=== PATIENT | female | born 1980 | race Caucasian/White ===

== ENCOUNTER 2017-02-26 11:10 | Day surgery (SDC) | payer OTHER ==
[~2017-02-26] VITALS: Ht 162.6 cm; Wt 68.2 kg
[~2017-02-26 11:10] MED LIST: BACTRIM; IMU50 PO; LEVE100018 PO; PANT40TA3 PO; PRED2.5T3 PO; ZOLP10TA PO
[2017-02-26 11:50] VITALS: Ht 162.6 cm; Wt 68.2 kg
[2017-02-26 11:54] VITALS: BP 106/66; PULSE 80; RESP 16
[2017-02-26] MEDS ORDERED: CLON0.2T5 PO (11:56)
[2017-02-26] MEDS ORDERED: MELO-110 PO (11:57)
[2017-02-26] MEDS ORDERED: MELO-109 PO (11:57)
[2017-02-26] MEDS ORDERED: LACTATED RINGER'S 1,000 ML IV* SCH (12:30)
[2017-02-26] MEDS ORDERED: CEFAZOLIN 2 GM/50 ML (PMX) 50 ML IVPB SCH (12:30)
--- NOTE | 2017-02-26 14:12 | HPN ---
Date/Time of Note Date/Time of Note DATE: 02/26/17 TIME: 14:11 Interval H&P Admission Note Pt. seen H&P reviewed: No system changes ILIA STERN MD Feb 26, 2017 14:12
--- NOTE | 2017-02-26 14:23 | OPR ---
Date/Time of Note Date/Time of Note DATE: 02/26/17 TIME: 14:19 Operative Report Free Text/Dictation Plastic Surgery Operative Report Preoperative diagnosis: hidradenitis Postoperative diagnosis: same Procedure: excision of bilateral inguinal hidradenitis Surgeon: nikia Lomax.:n/a Anesthesia: gen EBL: 20cc IV fluids: per flow sheet Findings: n/a Complications: none Dispo: home Indications for procedure: 36-year-old female presents today with bilateral inguinal hidradenitis. In the preop area, we marked the planned areas of excision. The procedure will be performed in the lithotomy to allow us to go as far posteriorly as possible. The risks, benefits, alternatives of performing this procedure were discussed with the patient including risks of bleeding, infection, delayed wound healing, lesion recurrence, and patient states that she understands these risks and would like to proceed with the procedure. All questions were answered, no guarantees were given with regards to the outcome of this procedure. Description of procedure: The patient was brought to the operating room where general anesthesia was induced and she was prepped and draped in usual sterile fashion in the lithotomy position taking special care to pad all pressure points and bony prominences. The electrocautery was then used on the right groin to excise the marked area at the level of the subcutaneous fat tissue. There are multiple draining tracts. These were all unroofed and excised. Hemostasis was achieved with electrocautery. Attention was turned to the left groin where the same procedure was carried out. Electrocautery was used to excise the marked areas at the level of the subcutaneous fat tissue. There were again multiple draining tracts and granulation tissue formation. A large cavity was discovered and unroofed posteriorly. There was a penunculated polyp found in the deep cavity, which was sent to pathology. Dissection proceeded inferiorly and additional areas were excised until all areas have been removed. The skin was palpated, and there were no visible or palpable fluctuant masses. Hemostasis was achieved with electrocautery, and then 40 cc of a diluted Exparel solution were injected in and around the surgical sites. Additional round of hemostasis was carried out. Finally, the wound was dressed with Silvadene and gauze. The patient tolerated procedure well, there were no complications, follow-up information and wound care instructions were given ILIA STERN MD Feb 26, 2017 14:23
[2017-02-26] MEDS ORDERED: morphine 2 MG INJ IV PRN (14:30)
[2017-02-26] MEDS ORDERED: EXPAREL NOTE (BUPIVICAINE LIPOSOMAL) XX SCH (14:30)
[2017-02-26] MEDS ORDERED: BUPIVACAINE LIPOSOME/PF 266 MG/20 ML VIAL INFIL SCH (14:30)
[2017-02-26] MEDS ORDERED: OXYCODONE/ACETAMINOPHEN (5/325) TAB PO PRN ×3 (14:30→16:00)
[2017-02-26] MEDS ORDERED: MIDAZOLAM 1 MG/ML 2 ML INJ ONE ×3 (14:31→14:48)
[2017-02-26] MEDS ORDERED: LIDOCAINE 2%/EPI 30 ML INJ ONE (14:34)
[2017-02-26] MEDS ORDERED: LIDOCAINE 2% (SDV) 5 ML INJ ONE (14:41)
[2017-02-26] MEDS ORDERED: PROPOFOL 20 ML ONE ×2 (14:41→15:12)
[2017-02-26] MEDS ORDERED: FENTAnyl 50 MCG/ML VIAL ONE (14:41)
[2017-02-26] MEDS ORDERED: HYDROmorphONE 2 MG/ML SYG ONE (15:09)
[2017-02-26] MEDS: BACITRACIN/POLYMYXIN 28.35 GM OINT TOP ONE ×2 (15:13→15:56)
[2017-02-26] MEDS ORDERED: PHENYLephrine (100 MCG/ML) 5ML SYG ONE ×2 (15:16→15:49)
[2017-02-26] MEDS ORDERED: EPHEDrine SULFATE 50 MG/5 ML SYG ONE (15:16)
[2017-02-26] MEDS ORDERED: SILVER SULFADIAZINE 1% 25 GM CR TOP SCH (15:30)
[2017-02-26] MEDS ORDERED: FENTAnyl 50 MCG/ML VIAL IV PRN ×3 (16:00→18:00)
[2017-02-26] MEDS ORDERED: DIPHENHYDRAMINE 50 MG INJ IV PRN ×3 (16:00→19:00)
[2017-02-26] MEDS ORDERED: HYDROmorphONE (0.2 MG/ML) 10ML SYG IV PRN (16:00)
[2017-02-26 16:21] VITALS: BP 109/71; PULSE 110; RESP 16
[2017-02-26] MEDS: HYDROmorphONE (0.2 MG/ML) 10ML SYG IV PRN ×13 (16:51→19:01)
[2017-02-26] MEDS: FENTAnyl 50 MCG/ML VIAL IV PRN ×5 (16:52→17:18)
[2017-02-26] MEDS ORDERED: oxyCODONE 5 MG TAB PO PRN (19:30)
[2017-02-26] MEDS ORDERED: ACETAMINOPHEN 1000MG/100ML IV 100 ML IVPB ONE (19:30)
[2017-02-26 19:50] VITALS: BP 98/57; PULSE 101; RESP 14
== END 2017-02-26 19:50 | disposition home or self-care (01) ==
LOC: SDS 11:10
PROVIDERS: ATTEND Surgery Plastic and Reconstructive Surgery
DX: L73.2 Hidradenitis suppurativa (principal); F41.8 Other specified anxiety disorders
CPT/HCPCS: 11406; 88305; C9290; J1170; J1200; J2250; J2370; J3010; Z7512; Z7610